=== PATIENT | male | born 1995 | race Two or more races ===

== ENCOUNTER 2021-12-27 10:00 | Emergency (ER) | payer OTHER ==
[2021-12-27] MEDS ORDERED: Lactated Ringers 1,000 ML IV SCH (10:30)
== END 2021-12-27 16:00 | disposition home or self-care (01) ==
LOC: JD.ED 10:00
DX: S87.81XA Crushing injury of right lower leg, initial encounter (principal); S93.401A Sprain of unspecified ligament of right ankle, initial encounter; X50.1XXA Overexertion from prolonged static or awkward postures, initial encounter
CPT/HCPCS: 73552; 73590; 73600; 73620; 80053; 81003; 82550; 83874; 85025; 85610; 85730; 99284; J7120